=== PATIENT | male | born 1945 | race Caucasian/White ===

== ENCOUNTER 2022-05-02 21:43 | Emergency (ER) | payer MEDICARE, BC, SELFPAY ==
[2022-05-02 22:00] VITALS: BP 150/74; PULSE 105; RESP 18; TEMP 36.6; O2SAT 98; BMI 26.6
--- NOTE | 2022-05-02 22:37 | ED.GENADULT ---
HPI - General Adult General Chief complaint: Dizziness/Vertigo Stated complaint: TROUBLE STANDING UP Time Seen by Provider: 05/02/22 22:02 History of Present Illness HPI narrative: 76-year-old man presenting to the emergency department accompanied by spouse with concern of lightheadedness. Not actually dizziness. History of vertigo. History of TBI. He is not complaining of any headache. Has not had a fever. Two days ago had a prostate biopsy. Apparently has struggled with urinary frequency and elevating PSA. He is also today noticed some hematuria. [place] the [place] [employer]. Has felt lightheaded really upon waking today. Does have a history of lightheadedness like this related to doubling up on his medication I believe this was Tegretol. This was due to a mistake in medication dosing as prescribed versus apparently what clinic understood he needed to be taking. He is not having any chest pain or shortness of breath. No abdominal pain. Not describing dysuria either. Spouse noted him this evening just to be weaving about; very unsteady. Related Data Home Medications Medication Instructions Recorded Confirmed amlodipine 5 mg tablet 7.5 mg PO DAILY 05/03/22 05/03/22 atorvastatin 20 mg tablet 20 mg PO HS 05/03/22 05/03/22 carbamazepine 100 mg 100 mg PO BID 05/03/22 05/03/22 tablet,extended release,12 hr lamotrigine 100 mg tablet 100 mg PO BID 05/03/22 05/03/22 lisinopril 5 mg tablet 5 mg PO DAILY 05/03/22 05/03/22 mesalamine 800 mg tablet,delayed 800 mg PO BID 05/03/22 05/03/22 release tamsulosin 0.4 mg capsule 0.4 mg PO DAILY 05/03/22 05/03/22 Allergies Allergy/AdvReac Type Severity Reaction Status Date / Time No Known Drug Allergies Allergy Verified 05/02/22 22:10 Review of Systems Status of ROS: Reports: 10 or more systems reviewed and unremarkable except as noted in History and below [facility] Medical History (Updated 05/03/22 @ 00:38 by Brayan Burleson MD) Cognitive disorder Dementia Depression Hypertension Unsteadiness on feet Urinary frequency Surgical History History of appendectomy S/P subdural hematoma evacuation Social History Smoking Status: Never smoker Do you use any of these nicotine containing products: None How often do you have a drink containing alcohol: never AUDIT-C Alcohol total score: 0 Non-prescribed substance use: denies use Exam Narrative: Exam Narrative: A little hard of hearing, distracted in this regard. defers sometimes to spouse. Cranial nerves 2-12 are intact. [id number] is intact. There is no nystagmus appreciated. Oropharynx is moist. Shaheen complected. Not inconsistent with being outside. Cardiovascular is tachycardic. Regular rhythm. No murmurs appreciated. Lungs are clear. Initial inspiratory effort inspire his cough. Abdomen is soft nontender. Overweight. Shirt is temp by what I believe from urine in the front. Smells a little urine. Moving all extremities difficulty. Well perfused peripherally. No extremity edema. Const: Vital Signs, click to edit/add: Vital Signs - 24 hr 05/02/22 22:00 05/02/22 23:00 05/03/22 01:00 Temperature 97.9 F 97.9 F Pulse Rate [Right Pulse Oximeter] 105 H 105 H 91 Pulse Rate [orthos tatic sitting Righ t Pulse Oximeter] 107 H Pulse Rate [orthos tatic standing Rig ht Pulse Oximeter] 110 H Respiratory Rate 18 18 Blood Pressure [Ri ght Upper Arm] 150/74 H 132/74 Blood Pressure [or thostatic lying Le ft Arm] 111/69 Blood Pressure [or thostatic sitting Left Arm] 120/72 Blood Pressure [or thostatic standing Left Arm] 127/79 Pulse Oximetry 98 98 Oxygen Delivery Me thod Room Air Room Air 05/03/22 01:23 Temperature 97.9 F Pulse Rate [Right Pulse Oximeter] 91 Pulse Rate [orthos tatic sitting Righ t Pulse Oximeter] Pulse Rate [orthos tatic standing Rig ht Pulse Oximeter] Respiratory Rate 18 Blood Pressure [Ri ght Upper Arm] 132/74 Blood Pressure [or thostatic lying Le ft Arm] Blood Pressure [or thostatic sitting Left Arm] Blood Pressure [or thostatic standing Left Arm] Pulse Oximetry Oxygen Delivery Me thod Documenting provider has reviewed patient's vital signs: yes Course Course Hospital Course: Throughout time in the emergency department continue to make frequent trips to the bathroom. Bladder scanned at 1 point postvoid at 47 mL. Reevaluation(s) Reevaluation #1: Cognition has cleared somewhat. Still tends to be impulsive and wanting to act on his own accord without asking for help. Spouse acknowledges that he seems to be demonstrating more strength and mental clarity throughout time here in the ER after hydration. I do perceive him to be more steady on his feet as well. Vital Signs Vital signs: Initial Vital Signs Temperature 97.9 F 05/02/22 22:00 Temperature Source Temporal Artery Scan 05/02/22 22:00 Pulse Rate 105 H 05/02/22 22:00 Respiratory Rate 18 05/02/22 22:00 Blood Pressure 150/74 H 05/02/22 22:00 Blood Pressure Mean 99 05/02/22 22:00 Blood Pressure Position Supine 05/02/22 22:00 Pulse Oximetry 98 05/02/22 22:00 Oxygen Delivery Method 05/02/22 22:00 Vital Signs Temperature 97.9 F 05/02/22 22:00 Pulse Rate 105 H 05/02/22 22:00 Respiratory Rate 18 05/02/22 22:00 Blood Pressure 150/74 H 05/02/22 22:00 Pulse Oximetry 98 05/02/22 22:00 Oxygen Delivery Method 05/02/22 22:00 Temperature 97.9 F 05/03/22 01:23 Pulse Rate 91 05/03/22 01:23 Respiratory Rate 18 05/03/22 01:23 Blood Pressure 132/74 05/03/22 01:23 Pulse Oximetry 98 05/03/22 01:00 Oxygen Delivery Method 05/03/22 01:00 Medical Decision Making [facility] Narrative Medical decision making narrative: Combinatino of factors perhaps contributing to presentation here today -- h/o tbi and propensity to vertigo-like symptoms, antiepileptic medication, dehydration having been out in the sun at baseball all day, possible brewing infectious etiology. Medical Records Medical records reviewed: Yes I reviewed the patient's medical records Lab Data Lab results reviewed: Yes I reviewed the patient's lab results Labs: Lab Results 05/02/22 05/02/22 05/02/22 Range/Units 22:35 23:00 23:00 WBC 10.07 (4.50-11.00) K/uL RBC 4.87 (4.30-5.90) m/uL Hgb 15.6 (13.5-17.5) gm/dL Hct 46.1 (37.0-53.0) % MCV 95 (80-100) fL MCH 32 (26-34) pg MCHC 34 (32-36) gm/dL RDW Coeff of Luis 13.7 (11.5-15.5) % Plt Count 259 (140-440) K/uL Neut % (Auto) 79.6 H (42.0-72.0) % Lymph % (Auto) 7.5 L (20-44) % [place] % (Auto) 11.8 H (0.0-11.0) % Eos % (Auto) 0.2 (0.0-7.0) % Baso % (Auto) 0.2 (0.0-3.0) % Neut # (Auto) 8.00 H (1.7-7.0) K/uL Lymph # (Auto) 0.80 L (0.90-2.90) K/uL [place] # (Auto) 1.20 H (0.00-0.90) K/UL Eos # (Auto) 0.02 (0.00-0.50) K/uL Baso # (Auto) 0.02 (0.00-0.30) K/uL Abs Immat Gran (auto) 0.07 (0.00-0.30) K/uL Sodium 137 (135-149) mmol/L Potassium 3.9 (3.6-5.1) mmol/L Chloride 102 (96-114) mmol/L Carbon Dioxide 26 (20-32) mmol/L BUN 13 (7-30) mg/dL Creatinine 1.0 (0.5-1.5) mg/dL Estimated Creat Clear 61.75 Estimated GFR 78 ml/min Glucose 118 H (60-115) mg/dL Calcium 9.1 (8.4-10.6) mg/dL Magnesium 1.9 (1.5-2.6) mg/dL Total Bilirubin 0.5 (0.1-1.5) mg/dL AST 39 H (12-35) U/L ALT 21 (4-50) U/L Alkaline Phosphatase 106 (40-150) U/L Troponin I < 0.01 L (0.01-0.04) ng/mL C-Reactive Protein 4.3 H (0.5-1.0) mg/dL NT-Pro-B Natriuret Pep 51 (0-450) PG/mL Total Protein 7.6 (6.0-8.3) g/dL Albumin 4.6 (3.3-5.0) g/dL Urine Color Yellow (Yellow) Urine Appearance Clear (Clear) Urine pH 7.5 (5.0-8.5) Ur Specific [place] 1.020 (1.000-1.030) Urine Protein Negative (Negative) Urine Glucose (UA) Negative (Negative) Urine Ketones Negative (Negative) Urine Blood 3+ A (Negative) Urine Nitrite Negative (Negative) Urine Bilirubin Negative (Negative) Urine Urobilinogen 0.2 (0.2-1.0) Ur Leukocyte Esterase Trace A (Negative) Urine RBC 5-10 A (0-2) Urine WBC 2-5 (0-5) Ur Squamous Epith Cells Few (None-Few) Urine Bacteria None (None) Carbamazepine (4.0-12.0) ug/mL Ethyl Alcohol < 0.01 L (0.01-0.03) % SARS-CoV-2 (PCR) (Negative) POC Troponin I (0.01-0.04) ng/ml 05/02/22 05/02/22 05/02/22 Range/Units 23:00 23:00 23:00 WBC (4.50-11.00) K/uL RBC (4.30-5.90) m/uL Hgb (13.5-17.5) gm/dL Hct (37.0-53.0) % MCV (80-100) fL MCH (26-34) pg MCHC (32-36) gm/dL RDW Coeff of Luis (11.5-15.5) % Plt Count (140-440) K/uL Neut % (Auto) (42.0-72.0) % Lymph % (Auto) (20-44) % [place] % (Auto) (0.0-11.0) % Eos % (Auto) (0.0-7.0) % Baso % (Auto) (0.0-3.0) % Neut # (Auto) (1.7-7.0) K/uL Lymph # (Auto) (0.90-2.90) K/uL [place] # (Auto) (0.00-0.90) K/UL Eos # (Auto) (0.00-0.50) K/uL Baso # (Auto) (0.00-0.30) K/uL Abs Immat Gran (auto) (0.00-0.30) K/uL Sodium (135-149) mmol/L Potassium (3.6-5.1) mmol/L Chloride (96-114) mmol/L Carbon Dioxide (20-32) mmol/L BUN (7-30) mg/dL Creatinine (0.5-1.5) mg/dL Estimated Creat Clear Estimated GFR ml/min Glucose (60-115) mg/dL Calcium (8.4-10.6) mg/dL Magnesium (1.5-2.6) mg/dL Total Bilirubin (0.1-1.5) mg/dL AST (12-35) U/L ALT (4-50) U/L Alkaline Phosphatase (40-150) U/L Troponin I (0.01-0.04) ng/mL C-Reactive Protein (0.5-1.0) mg/dL NT-Pro-B Natriuret Pep (0-450) PG/mL Total Protein (6.0-8.3) g/dL Albumin (3.3-5.0) g/dL Urine Color (Yellow) Urine Appearance (Clear) Urine pH (5.0-8.5) Ur Specific [place] (1.000-1.030) Urine Protein (Negative) Urine Glucose (UA) (Negative) Urine Ketones (Negative) Urine Blood (Negative) Urine Nitrite (Negative) Urine Bilirubin (Negative) Urine Urobilinogen (0.2-1.0) Ur Leukocyte Esterase (Negative) Urine RBC (0-2) Urine WBC (0-5) Ur Squamous Epith Cells (None-Few) Urine Bacteria (None) Carbamazepine 10.1 (4.0-12.0) ug/mL Ethyl Alcohol (0.01-0.03) % SARS-CoV-2 (PCR) Negative SARS-CoV-2 (Negative) POC Troponin I 0.02 (0.01-0.04) ng/ml ECG Data Attestation: I personally reviewed and interpreted this ECG as follows: (On presentation EKG showed sinus tachycardia rate of 101) Discharge Plan Discharge Clinical Impression: General unsteadiness, Urinary frequency, Dehydration Patient Disposition: Home w/ Parent or Adult Condition: Improved Additional Instructions: Do focus on hydration, carbonated or not. Be sure to in the short term, get around with a walker. Levels of carbemazepine and lamotrigine are pending here. Return for increasing weakness, discoordination, fever. Prescriptions: No Action amlodipine 5 mg tablet 7.5 mg PO DAILY Label Comments: TAKE 1 AND 1/2 TABLETS (7.5MG) BY MOUTH EVERY DAY atorvastatin 20 mg tablet 20 mg PO HS Label Comments: TAKE ONE TABLET(20MG) BY MOUTH AT BEDTIME carbamazepine 100 mg tablet extended release 12 hr 100 mg PO BID Label Comments: TAKE TWO TABLETS BY MOUTH EVERY MORNING AND TAKE 3 TABLETS BY MOUTH EVERY EVENING lamotrigine 100 mg tablet 100 mg PO BID Label Comments: TAKE ONE TABLET BY MOUTH EVERY MORNING AND 2 TABLETS EVERY EVENING DIRECTED lisinopril 5 mg tablet 5 mg PO DAILY Label Comments: TAKE 1 TABLET BY MOUTH ONCE DAILY. mesalamine 800 mg tablet,delayed release (DR/EC) 800 mg PO BID Label Comments: TAKE 3 TABLETS BY MOUTH IN THE MORNING AND TAKE 3 TABLETS IN THE AFTERNOON tamsulosin 0.4 mg capsule 0.4 mg PO DAILY Label Comments: TAKE ONE CAPSULE(0.4MG) BY MOUTH ONCE DAILY AFTER A MEAL Follow Up/Referrals: Andrea Zelaya MD [Primary Care Provider] - Stand Alone Forms: [employer] Info Instructions
[2022-05-02 22:44] LABS: Appearance Urine Clear (Clear); Bilirubin Urine Negative (Negative); Blood Urine 3+ (Negative); Color Urine Yellow (Yellow); Glucose Urine Negative (Negative); Ketones Urine Negative (Negative); Leukocyte Esterase Urine Trace (Negative); Nitrite Urine Negative (Negative); Protein Urine Negative (Negative); Urobilinogen Urine 0.2 (0.2-1.0); pH Urine 7.5 (5.0-8.5)
[2022-05-02 23:00] VITALS: BP 111/69; BP 120/72; BP 127/79; PULSE 105; PULSE 107; PULSE 110
[2022-05-02] MEDS: 0.9 % SODIUM CHLORIDE 1000 ml 1,000 ML IV (23:00)
[2022-05-02 23:20] LABS: Basophils Absolute Auto 0.02 K/uL (0.00-0.30); Basophils Percent Auto 0.2 % (0.0-3.0); Eosinophils Absolute Auto 0.02 K/uL (0.00-0.50); Eosinophils Percent Auto 0.2 % (0.0-7.0); Hematocrit 46.1 % (37.0-53.0); Hemoglobin* 15.6 gm/dL (13.5-17.5); Immature Granulocytes Abs Auto 0.07 K/uL (0.00-0.30); Lymphocytes Percent Auto 7.5 % (20-44); Mean Corpuscular HGB Conc 34 gm/dL (32-36); Mean Corpuscular Hemoglobin 32 pg (26-34); Mean Corpuscular Volume 95 fL (80-100); Monocytes Percent Auto 11.8 % (0.0-11.0); Neutrophils Percent Auto 79.6 % (42.0-72.0); Platelet Count* 259 K/uL (140-440); RDW Coefficient of Variation % 13.7 % (11.5-15.5); Red Blood Count 4.87 m/uL (4.30-5.90); White Blood Count* 10.07 K/uL (4.50-11.00)
[2022-05-02 23:30] LABS: Slide Review Reflex No
[2022-05-02 23:35] LABS: Albumin* 4.6 g/dL (3.3-5.0); Chloride* 102 mmol/L (96-114)
[2022-05-02 23:36] LABS: Potassium* 3.9 mmol/L (3.6-5.1); Sodium* 137 mmol/L (135-149)
[2022-05-02 23:37] LABS: Est. Creatinine Clearance* 61.75; Estimated Glomerular Filt Rate 78 ml/min
[2022-05-02 23:38] LABS: Alanine Aminotransferase* 21 U/L (4-50); Alkaline Phosphatase* 106 U/L (40-150); Aspartate Amino Transferase* 39 U/L (12-35); Bilirubin Total* 0.5 mg/dL (0.1-1.5); Blood Urea Nitrogen* 13 mg/dL (7-30); Carbon Dioxide* 26 mmol/L (20-32); Total Protein* 7.6 g/dL (6.0-8.3)
[2022-05-02 23:39] LABS: Squamous Epithelial Cell Urine Few (None-Few)
[2022-05-02 23:39] LABS: Calcium* 9.1 mg/dL (8.4-10.6); Glucose* 118 mg/dL (60-115); Magnesium* 1.9 mg/dL (1.5-2.6)
[2022-05-02 23:41] LABS: C Reactive Protein* 4.3 mg/dL (0.5-1.0)
[2022-05-02 23:42] LABS: Ethanol* < 0.01 % (0.01-0.03)
[2022-05-02 23:47] LABS: NT Pro B Type NatriureticPept* 51 PG/mL (0-450)
--- NOTE | 2022-05-02 23:48 | ED.NURSE ---
bladder scanned for 47cc. md notified.
[2022-05-02 23:50] LABS: Troponin, Point-of-Care* 0.02 ng/ml (0.01-0.04)
[2022-05-02 23:56] LABS: Troponin I* < 0.01 ng/mL (0.01-0.04)
[2022-05-03 00:16] LABS: SARS PCR* Negative SARS-CoV-2 (Negative)
[2022-05-03 01:00] VITALS: BP 132/74; PULSE 91; RESP 18; TEMP 36.6; O2SAT 98
[2022-05-03 01:23] VITALS: BP 132/74; PULSE 91; RESP 18; TEMP 36.6
[2022-05-03 02:56] LABS: Carbamazepine Tegretol* 10.1 ug/mL (4.0-12.0)
== END 2022-05-03 01:24 | disposition home or self-care (01) ==
PROVIDERS: Emergency Provider Family Medicine; PCP Family Medicine
DX: E86.0 Dehydration (principal); R26.81 Unsteadiness on feet; R35.0 Frequency of micturition
CPT/HCPCS: 36415; 80053; 80156; 80175; 81003; 81015; 82077; 83735; 83880; 84484; 85025; 86140; 87040; 87635; 93005; 96360; 99283; 99284; J7030

== ENCOUNTER 2024-09-25 18:37 | Outpatient (CLI) | payer MEDICARE, BC, SELFPAY | END 2024-09-25 18:38 | disposition home or self-care (01) | LOC: AMB 10-06 03:17 | PROVIDERS: PCP Family Medicine; Visit Provider Emergency Medicine Emergency Medical Services | DX: T14.90XA Injury, unspecified, initial encounter (principal); W10.9XXA Fall (on) (from) unspecified stairs and steps, initial encounter; Y92.9 Unspecified place or not applicable | CPT/HCPCS: A0425; A0427 ==

== ENCOUNTER 2024-09-25 19:06 | Inpatient (IN) | payer MEDICARE, BC, SELFPAY ==
[2024-09-25 19:10] VITALS: BP 185/99; PULSE 108; RESP 18; TEMP 37.5; O2SAT 99; BMI 25.8
--- NOTE | 2024-09-25 19:51 | CRLHL7_ITS ---
For Patients: As a result of the Century Cures Act, medical imaging exams and procedure reports are released immediately into your electronic medical record. You may view this report before your referring provider. If you have questions, please contact your health care provider. INDICATION: Fall. Recent diagnosis of bladder cancer. COMPARISON: 01/30/2020 MRI brain TECHNIQUE: CT of the head without contrast. FINDINGS: Motion degraded exam particularly at the skull vertex. Old findings of a right frontal craniotomy with a large region of encephalomalacia the left frontal lobe are again noted. There is a elongated 11 millimeter hyperattenuating focus within the left postcentral gyrus (). Small old infarct in the left frontal lobe again noted. Chronic bilateral basal ganglia old lacunar infarcts and/or dilated perivascular spaces. There is moderate hypoattenuating changes in the white matter which is nonspecific, but commonly attributable to chronic microvascular ischemic change. There is mild parenchymal volume loss with commensurate size of the ventricles and sulci. There are intracranial vascular calcifications. There is mild to moderate scattered paranasal sinus mucosal thickening. IMPRESSION: Motion degraded exam particularly at the skull vertex. Within this limitation: 1. 11 millimeter hyperattenuating focus in the left postcentral gyrus possibly representing a small focus of acute intracranial hemorrhage and/or a mass lesion. Recommend further evaluation with MRI. 2. Old findings of right frontal craniotomy with large region of right frontal encephalomalacia. 3. Additional chronic and incidental findings as detailed above. Please note that all CT scans at this facility use dose modulation, iterative reconstruction, and/or weight-based dosing when appropriate to reduce radiation dose to as low as reasonably achievable. Dictated by Arron Polanco MD @ 09/25/2024 8:59:48 PM (Electronically Signed)
--- NOTE | 2024-09-25 19:51 | CRLHL7_ITS ---
For Patients: As a result of the Century Cures Act, medical imaging exams and procedure reports are released immediately into your electronic medical record. You may view this report before your referring provider. If you have questions, please contact your health care provider. INDICATION: Fall. Recent diagnosis of bladder cancer. COMPARISON: 01/30/2020 TECHNIQUE: CT of the cervical spine without contrast. FINDINGS: Diffuse osseous demineralization. Alignment: Mild multilevel cervical listhesis. Straightening the cervical lordosis. Vertebra: No evident acute displaced fracture or traumatic malalignment. Cervical vertebral body height is grossly preserved. There are multilevel degenerative changes characterized by disc height loss, osteophytosis, facet hypertrophy, and end plate degenerative irregularity. Small pannus at the craniocervical junction. No high-grade osseous spinal canal stenosis. There is multilevel osseous neural foraminal stenosis most pronounced at the bilateral C3-4 where it is severe. Paraspinal muscles: Unremarkable noncontrast CT appearance. Additional findings: There are atherosclerotic vascular calcifications. IMPRESSION: 1. No evident acute displaced fracture. 2. Severe degenerative change of the cervical spine. Please note that all CT scans at this facility use dose modulation, iterative reconstruction, and/or weight-based dosing when appropriate to reduce radiation dose to as low as reasonably achievable. Dictated by Arron Polanco MD @ 09/25/2024 9:06:00 PM (Electronically Signed)
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
[2024-09-25 20:56] LABS: Basophils Absolute Auto 0.02 K/uL (0.00-0.30); Basophils Percent Auto 0.2 % (0.0-3.0); Eosinophils Absolute Auto 0.09 K/uL (0.00-0.50); Immature Granulocytes Abs Auto 0.09 K/uL (0.00-0.30); Lymphocytes Percent Auto 4.7 % (20-44); Mean Corpuscular HGB Conc 33 gm/dL (32-36); Mean Corpuscular Hemoglobin 32 pg (26-34); Mean Corpuscular Volume 95 fL (80-100); Monocytes Percent Auto 10.3 % (0.0-11.0); Neutrophils Percent Auto 82.8 % (42.0-72.0); Platelet Count* 300 K/uL (140-440); RDW Coefficient of Variation % 13.1 % (11.5-15.5); Red Blood Count 4.74 m/uL (4.30-5.90); White Blood Count* 9.11 K/uL (4.50-11.00)
[2024-09-25 21:03] LABS: Slide Review Reflex No
[2024-09-25 21:10] VITALS: BP 180/102; PULSE 108; RESP 20; O2SAT 94
[2024-09-25 21:10] LABS: Chloride* 100 mmol/L (96-114); Potassium* 4.2 mmol/L (3.6-5.1); Sodium* 138 mmol/L (135-149)
[2024-09-25 21:12] LABS: Creatinine* 0.9 mg/dL (0.5-1.5); Est. Creatinine Clearance* 59.85; Estimated Glomerular Filt Rate 88 ml/min
[2024-09-25 21:13] LABS: Anion Gap 9 mEq/L (7-15); Blood Urea Nitrogen* 11 mg/dL (7-30); Carbon Dioxide* 29 mmol/L (20-32); Glucose* 104 mg/dL (60-115)
[2024-09-25 21:14] LABS: Calcium* 9.7 mg/dL (8.4-10.6)
[2024-09-25 21:15] LABS: INR 0.91 (0.91-1.10); Prothrombin Time 12.8 Seconds
[2024-09-25 21:28] LABS: Troponin I* < 0.01 ng/mL (0.01-0.04)
--- NOTE | 2024-09-25 21:59 | CRLHL7_ITS ---
For Patients: As a result of the Century Cures Act, medical imaging exams and procedure reports are released immediately into your electronic medical record. You may view this report before your referring provider. If you have questions, please contact your health care provider. INDICATION: Persistent tachycardia after chest abdominal pelvic injury from fall. Recent bladder cancer diagnosis TECHNIQUE: CT chest was performed with pulmonary angiographic technique. Subsequently, CT abdomen and pelvis with i.v. contrast, scanned during the venous phase. MIPS, coronal and sagittal reformats were obtained. CONTRAST: 83 mL Isovue 370 COMPARISON: None FINDINGS: The sensitivity and specificity of the exam are moderately limited by beam hardening artifacts from scanning with the arms by the patient`s side. CHEST: Cardiovascular: The pulmonary arteries are unremarkable in enhancement with no evidence of acute pulmonary embolism. The heart has an unremarkable appearance and size. No sign of aneurysm or dissection in the thoracic aorta. Moderate atherosclerotic calcifications are noted in the coronary arteries. Mediastinum: No mass or adenopathy seen. Lung: No pulmonary contusion, laceration or pneumothorax is seen. Pleura and pericardium: No sign of pleural effusion seen. No significant pericardial effusion is present. Chest wall and axilla: No mass or adenopathy seen. ABDOMEN/PELVIS: Liver: There is a cyst in the left dome of the liver measuring 2 cm. Spleen: Unremarkable. Pancreas: Unremarkable. Gallbladder: Unremarkable. Kidney: Excretion of contrast into the renal collecting systems and ureters arenoted, which limits evaluation for the presence of stones. Adrenal: Unremarkable. Bowel: A duodenal diverticulum measuring 3.5 cm in diameter is noted. Previous appendectomy noted with no significant appendiceal stump identified. Vascular: Unremarkable. Lymph: Unremarkable. Peritoneum: Unremarkable. No pneumoperitoneum is seen. No significant ascites is noted. Pelvis: There is a cyst present within the right seminal vesicle measuring 1.8 cm. Soft tissue: Unremarkable. Bone: Remote healed fractures of the right posterior 4th-6th ribs are noted. There are nondisplaced acute appearing fractures in the posterior left 8th-10th ribs. A healed remote fracture of the left posterior lateral 9th rib fractures noted. 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 A chronic appearing mild compression deformity is present along the superior endplate of L2 and L3. IMPRESSIONS: 1. There are nondisplaced acute appearing fractures in the posterior left 8th-10th ribs. 2. 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 Dictated by Khris Ross MD @ 09/25/2024 10:59:03 PM Please note that all CT scans at this facility use dose modulation, iterative reconstruction, and/or weight-based dosing when appropriate to reduce radiation dose to as low as reasonably achievable. Dictated by: Khris Ross MD @ 09/25/2024 22:59:09 (Electronically Signed)
[2024-09-25 22:05] VITALS: O2SAT 96
[2024-09-25 22:12] VITALS: BP 137/80; PULSE 99; RESP 20; O2SAT 92
[2024-09-25 22:44] LABS: PCR FLU A POSITIVE PCR FLU A (Negative); PCR FLU B Negative PCR FLU B (Negative); PCR RSV Negative PCR RSV (Negative); SARS PCR* Negative SARS-CoV-2 (Negative)
[2024-09-25 22:47] LABS: TSH With Reflex to FT4* 0.592 uIU/mL (0.270-4.200)
[2024-09-25] MEDS: OSELTAMIVIR PHOSPHATE 75 MG CAPSULE PO (22:54)
[2024-09-25 23:02] VITALS: BP 170/89; PULSE 100; RESP 20; O2SAT 96
[2024-09-26] VITALS (28 sets, daily range): BP systolic 93–138; BP diastolic 59–78; PULSE 67–99; RESP 18–20; TEMP 36.9–38.4; O2SAT 90–96; BMI 27.0
--- OUTSIDE RECORDS SUMMARY | 2024-09-26 00:14 | XMS_ITS | Data Portability ---
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 ALSO FOUND TO HAVE A URETHRAL STRICTURE. PRESENTLY VOIDING OK. PSA 0.70. WAS USING TRIPLE AGENT BEFORE HIS PROCEDURE. REVIEWED PSA REVIEWED RECORDS PLAN RTC 3 MO U/A, PVR. IF HAVING ANY VOIDING SX.S DO CYSTO Not available 01/05/2023 12:40:20 04/07/2023 04/07/2023 77 Y/O MALE, HX CAP, G6, S/P CRYO 08/27 PSA 0.9. HX URETHRAL STRICTURE DISEASE. HE HAS NOTED REDUCED FLOW, CYSTO U-DIL. ORDERED REVIEWED U/A, PSA CYSTO U-DIL OVER A WIRE PLAN RTC 6 MO PSA. U/A,PVRANTIBIO TICS GIVEN. Not available 04/09/2023 09:42:06 10/13/2023 10/13/2023 77 Y/O MALE, HX CAP, S/P CRYO 08/27/22. PSA STABLE 1.4. ALSO REDUCED SEX DRIVE. HAS TRIED MEDICAL THERAPY WITH MARGINAL IMPROVEMENT. DISCUSSED OTHER OPTIONS. ORDERED,REVIEW ED U/A, PVR, PSA PLAN SILDENAFIL NEEDED, HAS A BULKBOUS STRICTURE WILL SCHEDULE CYSTO UDIL IN NEAR FUTURE Not available 10/13/2023 15:32:10 12/01/2023 12/01/2023 77 Y/O MALE, HX CAP, S/P CRYO 08/27/22. PSA STABLE 1.4, ED, bulbar urethral stricture [email or web address] Not available 12/01/2023 09:28:41 Plan of Treatment Reminders Order Date Submit Date Provider Last Modified By Organization Details Last Modified Time Details Appointments None recorded . Lab PSA, serum or plasma 2023 [facility], [address], [place], [address], 14:41:07 Referral None recorded . Procedures None recorded . Surgeries None recorded . Imaging None recorded . Medication Orders sildenaf il 100 mg tablet [address], [address], 15:20:04 clomiphe ne citrate 50 mg tablet [address], [address], 12:50:07 oxybutyn in chloride ER 15 mg tablet,e xtended release 24 hr [address], [address], 16:58:58 Patient TargetsNo targets recorded. Patient InstructionsNo instructions recorded. Reason for Referral None Reported. Results Created Date Observation Date Name Description Value Unit Range Abnormal Flag Note LastModifiedBy Organization Detail LastModifiedTime 10/13/19 24 10/13/2023 TESTO STERO NE testosterone 384.53 NG/dL 175.00 -781.0 0 This lab resul t is being provi ded to you and your provi nadia at the same time in compl iance with the Centu ry Cures Act. Your provi nadia may not have had time to revie w and make recom menda tions based on the resul t. Christian agarwal allow up to one week for provi nadia revcarmen w. Not Available [facility] [address], [place], [address], 10/13/2023 18:04:39 10/13/19 24 10/13/2023 PSA, serum or plasm a PSA 1.4 0-4.0 Not Available [facility] [address], [place], [address], 10/13/2023 14:40:48 Result Notes None recorded. Problems Name Problem SNOMED Code Status Onset Date Resolution Date Notes Provider Name and Address Organization Details Recorded Time Malignant tumor of prostate 225505337 Active 2023 Bladimir Claire MD [address], [place], [address], [facility] 4 14:40:46 Erectile dysfunction 999716455 Active 2023 Bladimir Claire MD [address] [facility], [place], [address], [facility] 4 15:32:32 Increased frequency of urination 797766331 Active 2023 Bladimir Claire MD [address] [facility],[address], [place], [address], [facility] 4 14:12:49 Urethral stricture 44424663 Active 2023 Bladimir Claire MD [address] [place] [address],[address], [place], [address], [facility] 4 13:54:29 Problem Notes None recorded. Procedures Surgical History Date Name Laterality Status Provider Name and Address Organization Details Recorded Time 12/01/19 24 Bladder Scan completed Kirsten Diaz [facility] 12/01/2023 15:24:26 11/02/19 24 CystoscopyMale completed Bladimir Claire MD [address] [facility],[address], [place], [address], [facility] 2023 13:58:00 10/13/19 24 SOFTWARE COMPUTER SPECIALIST/blood draw completed Bladimir Claire MD [address] [facility] [facility],[address], [place], [address], [facility] 10/13/2023 14:40:41 04/07/20 23 Cystoscopy with urethral dilation completed Bladimir Claire MD [address] [place] [address],[address], [place], [address], [facility] 04/09/2023 09:40:32 09/23/19 23 Bladder Scan completed Bladimir Claire MD [address] [place] [address],[address], [place], [address], [facility] 09/23/2022 12:18:03 08/25/20 22 Fill and Pull/Voiding Trial/TOV completed Love Steven [facility] 08/25/2022 11:39:37 04/30/20 22 Prostate Biopsy Procedure completed Vazquez Mcarthur MD [address] [place] [address],[address], [place], [address], [facility] 04/30/2022 11:42:46 03/27/20 22 SOFTWARE COMPUTER SPECIALIST/blood draw completed Wandastephani Lopez [facility] 03/27/2022 11:58:07 operation on brain completed Wandastephani Lopez [facility] 03/27/2022 11:57:11 Appendectomy completed Wandastephani Lopez [facility] 03/27/2022 11:57:19 tonsillectomy completed [facility] 03/27/2022 11:57:24 Imaging Results None recorded. Procedure Notes None recorded. Medical Equipment None Reported. Allergies Allergen ID Allergen Name Allergen Category Reaction Reaction Severity Criticality Documentation Date Start Date Code Code System Note Provider Name and Address Organization Details Recorded Time [id number] 2824e Ceftin medicatio n Not available Not available Not available 03/27/2022 74985 6 RxNorm Not Available Not Available Not Available [id number] 2824e Keppra medicatio n Not available Not available Not available 03/27/2022 56490 7 RxNorm Not Available Not Available Not Available Medications Name Sig Start Date Stop Date Status Note LastModified by Organization Details LastModified Time Trimix 30 papaverine/ 1 phentolamin e/10 PGE-1 called in to pharmacy below 2021 active Not Available Not Available Not Avai lable tolterodine ER 2 mg capsule,ext ended release 24 hr TAKE 1 CAPSULE BY MOUTH EVERY DAY DIRECTED FOR 30 DAYS. 11/30 completed Not Available Not Available Not Available prednisone 10 mg tablet TAKE 6 TABLETS BY MOUTH ONCE DAILY FOR 7 DAYS THEN 4 TABS DAILY FOR 3 DAYS THEN 2 TABS DAILY X3 DAYS THEN 1 TAB DAILY X3 DAYS.DO NOT STOP SUDDENLY 03/27 completed Not Available Not Available Not Available oxybutynin chloride ER 15 mg tablet,exte nded release 24 hr TAKE ONE TABLET BY MOUTH EVERY DAY active Not Available Not Available No t Available atorvastati n 20 mg tablet TAKE 1 TABLET (20 MG) BY MOUTH AT BEDTIME. active Not Available Not Available No t Available azithromyci n 250 mg tablet TAKE 2 TABLETS BY MOUTH TODAY THEN 1 TABLET DAILY FOR 4 DAYS 11/30 completed Not Available Not Available Not Available carbamazepi ne ER 100 mg tablet,exte nded release,12 hr TAKE TWO TABLETS BY MOUTH EVERY MORNING AND TAKE 3 TABLETS BY MOUTH EVERY EVENING active Not Available Not Available No t Available amlodipine 5 mg tablet TAKE 1.5 TABLETS (7.5 MG) BY MOUTH ONCE DAILY. active Not Available Not Available No t Available ciprofloxac in 500 mg tablet TAKE 1 TABLET BY MOUTH EVERY 12 HOURS FOR 7 DAYS. 11/30 completed Not Available Not Available Not Available sulfamethox azole 800 mg-trimetho prim 160 mg tablet TAKE ONE TABLET BY MOUTH EVERY 12 HOURS FOR 7 DAYS 09/23 completed Not Available Not Available Not Available tramadol 50 mg tablet 11/30 completed Not Available Not Available Not Available sildenafil 100 mg tablet TAKE 1 TABLET NEEDED 30 MINUTES PRIOR TO SEXUAL ACTIVITY 11/30 completed Not Available Not Available Not Available terbinafine HCl 250 mg tablet TAKE 1 TABLET (250 MG) BY MOUTH ONCE DAILY. active Not Available Not Available No t Available tamsulosin 0.4 mg capsule TAKE ONE CAPSULE(0 .4MG) BY MOUTH ONCE DAILY AFTER A MEAL 11/30 completed Not Available Not Available Not Available benzonatate 100 mg capsule TAKE ONE CAPSULE BY MOUTH 2-3 TIMES DAILY DAILY NEEDED FOR COUGH 11/30 completed Not Available Not Available Not Available oxybutynin chloride ER 5 mg tablet,exte nded release 24 hr 11/30 completed Not Available Not Available Not Available lisinopril 5 mg tablet TAKE 1 TABLET (5 MG) BY MOUTH ONCE DAILY. active Not Available Not Available No t Available gentamicin 40 mg/mL injection solution Take 2 mL by injection route. 05/20 completed Not Available Not Available Not Available lamotrigine 100 mg tablet TAKE ONE TABLET BY MOUTH EVERY MORNING AND 2 TABLETS EVERY EVENING DIRECTED active Not Available Not Available No t Available Clomid 50 mg tablet active Not Available Not Available No t Available peg 3350-electr olytes 236 gram-22.74 gram-6.74 gram-5.86 gram solution DRINK 1ST PORTION OF PREP AT 6 PM THE EVENING BEFORE. 2ND PORTION MUST BE STARTED 3 HOURS BEFORE AND FINISHED 2 HOURS PRIOR TO REPORT TIME 11/30 completed Not Available Not Available Not Available mesalamine 800 mg tablet,blake yed release TAKE 3 TABLETS BY MOUTH IN THE MORNING AND TAKE 3 TABLETS IN THE AFTERNOON active Not Available Not Available No t Available Vitals Date Recorded Body height Provider Name an d Address Organization Details Last Updated DateTime 01/05/2023 172.72 cm Pauline Sosa [address] [place] [address], [address] [place] [address] 01/05/2023 12:27:01 Date Recorded Body mass index (BMI) Body weight Provider Name and Address Organization Details Last Updated DateTime 01/05/2023 26.6 kg/m2 65412.66 g Bladimir Claire MD [address] [place] [address], [address], [facility] 01/05/2023 12:27:06 Date Recorded Body height Provider Name an d Address Organization Details Last Updated DateTime 04/07/2023 172.72 cm Pauline Sosa [address] [place] [address], [address], [facility] 04/07/2023 14:35:00 Date Recorded Body mass index (BMI) Body weight Provider Name and Address Organization Details Last Updated DateTime 04/07/2023 26.6 kg/m2 63415.66 g Bladimir Claire MD [address] [place] [address],[address] [place] [address], [address] [place] [address] Urology 04/07/2023 14:35:07 Date Recorded Body height Provider Name an d Address Organization Details Last Updated DateTime 10/13/2023 172.72 cm Pauline Sosa [address] [place] [address],[place] [phone] [place] [address] [facility] 10/13/2023 14:38:54 Date Recorded Body mass index (BMI) Body weight Provider Name and Address Organization Details Last Updated DateTime 10/13/2023 26.6 kg/m2 85975.66 g Bladimir Claire MD [address] [place] [address],[address] [address] [place] [address] [facility] 10/13/2023 14:38:59 Date Recorded Body height Provider Name an d Address Organization Details Last Updated DateTime 11/02/2023 172.72 cm Emerita Aguilar [facility] 11/02/2023 14:26:09 Date Recorded Body height Provider Name an d Address Organization Details Last Updated DateTime 12/01/2023 172.72 cm Kirsten Diaz [facility] 12/01/2023 15:18:43 Date Recorded Body mass index (BMI) Body weight Provider Name and Address Organization Details Last Updated DateTime 12/01/2023 26.6 kg/m2 62965.66 g Kirsten Diaz [facility] 12/01/2023 15:18:46 Social History Question Answer Notes LastModified by Organizat ion Details LastModified Time Tobacco Smoking Status Current Every Day Smoker Wanda caceres [facility] 03/27/2022 11:56:46 What Is Your Level Of Alcohol Consumption? Moderate [email or web address] Information not available 03/27/2022 What Is Your Level Of Caffeine Consumption? Moderate [email or web address] Information not available 03/27/2022 What Was The Date Of Your Most Recent Tobacco Screening? 12/01/2023 Information not available 12/01/2023 How Much Tobacco Do You Smoke? 1 PPW [email or web address] Information not available 03/27/2022 Do You Use Any Illicit Or Recreational Drugs? No [email or web address] Information not available 03/27/2022 Do You Or Have You Ever Used Any Other Forms Of Tobacco Or Nicotine? No [email or web address] Information not available 03/27/2022 How Many Days In The Past Year Have You Consumed 5 Or More Drinks? 0 Information no t available 12/01/2023 Sex: Unknown Functional Status None recorded. Mental Status None recorded. Family History Nothing Reported. Medical History Condition Response High Blood Pressure Y Cancer Y High Cholesterol Y Immunizations Vaccine Type Date Status Note Provider Nam e and Address Organization Details Recorded Time IPV 4 completed Bladimir Claire MD [address] [place] [address],[address], [address], [facility] 10/13/2023 14:39:05 Influenza, adjuvanted, trivalent, PF 9 completed Bladimir Claire MD [address] [place] [address],[address], [address], [facility] 10/13/2023 14:39:05 Influenza, recombinant, quadrivalent, PF 0 completed Bladimir Claire MD [address] [place] [address],[address], [address], [facility] 10/13/2023 14:39:05 zoster recombinant 9 completed Bladimir Claire MD [address] [place] [address],[address], [address], [facility] 10/13/2023 14:39:05 zoster recombinant 9 completed Bladimir Claire MD [address] [place] [address],[address], [place], [address], [facility] 10/13/2023 14:39:05 Influenza, high-dose, quadrivalent, PF 1 completed Bladimir Claire MD [address] [place] [address],[address], [address], [facility] 10/13/2023 14:39:05 influenza, unspecified formulation 7 completed Bladimir Claire MD [address] [place] [address],[address], [place], [address], [facility] 10/13/2023 14:39:05 Tdap 5 completed Bladimir Claire MD [address] [place] [address],[address], [place], [address], [facility] 10/13/2023 14:39:06 Novel Czskhsgfd-[id number], all formulations 0 completed Bladimir Claire MD [address] [place] [address],[address], [place], [address], [facility] 10/13/2023 14:39:06 yellow fever live 4 completed Bladimir Claire MD [address] [place] [address],[address], [place], [address], [facility] 10/13/2023 14:39:06 zoster live 3 completed Bladimir Claire MD [address] [place] [address],[address], [place], [address], [facility] 10/13/2023 14:39:06 Influenza, high-dose, trivalent, PF 5 completed Bladimir Claire MD [address] [place] [address],[address], [place], [address], [facility] 10/13/2023 14:39:06 Influenza, high-dose, trivalent, PF 7 completed Bladimir Claire MD [address] [place] [address],[address], [place], [address], [facility] 10/13/2023 14:39:06 Influenza, high-dose, trivalent, PF 5 completed Bladimir Claire MD [address] [place] [address],[address], [place], [address], [facility] 10/13/2023 14:39:06 Influenza, high-dose, trivalent, PF 6 completed Bladimir Claire MD [address] [place] [address],[address], [place], [address], [facility] 10/13/2023 14:39:06 Influenza, split virus, trivalent, preservative 8 completed Bladimir Claire MD [address] [place] [address],[address], [place], [address], [facility] 10/13/2023 14:39:06 Influenza, split virus, trivalent, preservative 3 completed Bladimir Claire MD [address] [place] [address],[address], [place], [address], [facility] 10/13/2023 14:39:06 Influenza, split virus, trivalent, preservative 5 completed Bladimir Claire MD [address] [place] [address],[address], [place], [address], [facility] 10/13/2023 14:39:06 Influenza, split virus, trivalent, preservative 3 completed Bladimir Claire MD [address] [place] [address],[address], [place], [address], [facility] 10/13/2023 14:39:06 Influenza, split virus, trivalent, PF 0 completed Bladimir Claire MD [address] [place] [address],[address], [place], [address], [facility] 10/13/2023 14:39:06 Influenza, split virus, trivalent, PF 8 completed Bladimir Claire MD [address] [place] [address],[address], [place], [address], [facility] 10/13/2023 14:39:06 Influenza, split virus, trivalent, PF 1 completed Bladimir Claire MD [address] [place] [address],[address], [place], [address], [facility] 10/13/2023 14:39:06 Td (adult), 2 Lf tetanus toxoid, preservative free, adsorbed 4 completed Bladimir Claire MD [address] [place] [address],[address], [place], [address], [facility] 10/13/2023 14:39:06 Td (adult), 2 Lf tetanus toxoid, preservative free, adsorbed 0 completed Bladimir Claire MD [address] [place] [address],[address], [place], [address], [facility] 10/13/2023 14:39:06 Hep B, adult 7 completed Bladimir Claire MD [address] [place] [address],[address], [place], [address], [facility] 10/13/2023 14:39:06 Hep B, adult 7 completed Bladimir Claire MD [address] [place] [address],[address], [place], [address], [facility] 10/13/2023 14:39:06 Hep B, adult 6 completed Bladimir Claire MD [address] [place] [address],[address], [place], [address], [facility] 10/13/2023 14:39:06 Hep A, adult 5 completed Bladimir Claire MD [address] [place] [address],[address], [place], [address], [facility] 10/13/2023 14:39:06 Hep A, adult 4 completed Bladimir Claire MD [address] [place] [address],[address], [place], [address], [facility] 10/13/2023 14:39:06 typhoid, oral 7 completed Bladimir Claire MD [address] [place] [address],[address], [place], [address], [facility] 10/13/2023 14:39:06 typhoid, ViCPs 4 completed Bladimir Claire MD [address] [place] [address],[address], [place], [address], [facility] 10/13/2023 14:39:06 Influenza, split virus, quadrivalent, PF 4 completed Bladimir Claire MD [address] [place] [address],[address], [place], [address], [facility] 10/13/2023 14:39:06 COVID-19, mRNA, LNP-S, PF, 30 mcg/0.3 mL dose 1 [facility]/27/[facility]22 11:54:20 COVID-19, mRNA, LNP-S, PF, 30 mcg/0.3 mL dose 1 completed Wanda Lopez morris, [facility] 03/27/2022 11:54:20 COVID-19, mRNA, LNP-S, PF, 30 mcg/0.3 mL dose 2 completed Wanda Lopezmatt caceres, [facility] 03/27/2022 11:54:20 COVID-19, mRNA, LNP-S, PF, 30 mcg/0.3 mL dose 1 [facility] 03/27/2022 11:54:20 pneumococcal polysaccharide PPV23 3 completed Wanda Lopez [facility] 03/27/2022 11:54:20 Pneumococcal conjugate PCV 13 6 completed Wanda Lopez [facility] 03/27/2022 11:54:20 Past Encounters Encounter ID Performer Location Encounter Start Date Encounter Closed Date Diagnosis/Indication Diagnosis SNOMED-CT Code Diagnosis ICD10 Code Diagnosis Note [id number] Boubacar Jang MD [facility] [address] [place] [place] [id number] 03/27/2022 11:43:37 03/30/2022 11:37:19 Increased frequency of urination 213063176 R35.0 H/OUrinary urgency / Frequency- has not responded to oral medication s- other options are Bladder Botox or electrical stimulatio n (Interstim )- reassess after Prostate bx Erectile dysfunction 860 181706 F52.21 H/O Erectile dysfunctio n, unspecifie d erectile dysfunctio n type- continue Trimix (30 mg/2 mg/ 20 mcg) - 0.3-0.4 mL injections prn- CHAS - no effective Prostate s pecific antigen above reference range 369340128 R97.20 1.. Elevated (rising) PSA- Prostate MRI (12/28/18) - 17 gm - no suspicious lesions- high PSA density (0.57)- concerning for prostate cancer- recommend TRUS bx of the prostate (risks include bleeding, infection, and blood in semen) [id number] Vazquez Mcarthur MD [facility] [employer] [facility]. [address] [place] [id number] 04/30/2022 10:59:26 05/04/2022 13:20:11 Prostate specific antigen above reference range 882899522 R97.[address] [facility] pathology results. He was given IM and oral antibiotic s as prophylaxi s against infection. Should he develop a fever or chills, he' ' ll need to call us immedi a tely. [id number] Vazquez Mcarthur MD [facility] [employer] [facility] [address] [place] [id number] 04/30/2022 10:59:26 05/05/2022 03:54:27 [id number] Boubacar Jang MD [facility] [employer] [facility] [address] [place] [id number] 05/20/2022 16:47:41 05/25/2022 10:39:44 Increased frequency of urination 704111494 R35.0 H/O Urinary urgency / Frequency- has not responded to oral medication s- other options are Bladder Botox or electrical stimulatio n (Interstim )- reassess after Prostate cancer tx Erectile dysfunction 860 585278 F52.21 H/O Erectile dysfunctio n, unspecifie d erectile dysfunctio n type- continue Trimix (30 mg/2 mg/ 20 mcg) - 0.3-0.4 mL injections prn- CHAS - no effective Malignant tumor of prostate 226777955 C61 1. Prostate cancer - T1c - Rachel 3+3 = 6 - we reviewed the prostate biopsy results and Manohar table data - treatment options discussed included expectant management , hormonal therapy, cryotherap y, HIFU, radiation (Brachythe rapy and XRT), and surgery (Robot-ass isted laparoscop ic prostatect julia and open Radical retropubic prostatect julia with bilateral pelvic lymph node dissection ). Risks of surgery include bleeding, infection, hernia, rectal injury, urinary incontinen ce, erectile dysfunctio n, and lymphocele formation. - he is considerin g Cryotherap y, RAL prostatect julia, or external beam Radiation- his questions were answered today- I recommende d getting 2nd opinions- he will call and let me know which treatment he would like to pursue [id number] [facility] [address] [place] [address] [address] [place] [id number] 06/24/2022 09:58:15 06/26/2022 12:42:05 Prostate specific antigen above reference range 050794450 R97.20 Malignant tumor of prostate 217964583 C61 [id number] Love Steven _[place] [address] [place] [id number] 08/25/2022 10:53:14 09/01/2022 09:25:06 Postoperative retention of urine 199131932 R33.8 See Procedure Documentat ion for details. Did well: 180 ml IN/180ml OUT. Given Bactrim DS 800mg/160m g x 2 more tabs for prophylaxi sMichael Ibarra, RN/BSN [id number] [facility] [address]. [address] [place] [id number] 09/23/2022 11:56:20 09/30/2022 14:51:34 Postoperative visit 387554349 Z09 Increased frequency of urination 266042866 R35.0 Malignant tumor of prostate 765791457 C61 [id number] [facility] [address]. [place] [id number] 01/05/2023 12:20:36 01/13/2023 10:20:53 Malignant tumor of prostate 139067036 C61 Urethral stricture 05828 002 N35.812 [id number] MD BEATRIZ [facility] [address]. [place] [id number] 04/07/2023 14:31:06 04/12/2023 13:29:32 Malignant tumor of prostate [id number] C61 Urethral stricture 71616 002 N35.812 [id number] [facility] [address] [place] [address] Alejandra. S SUKI GONZALEZ [id number] 10/13/2023 13:53:14 10/15/2023 09:46:44 Malignant tumor of prostate [id number] C61 Erectile dysfunction [id number] F52.21 [id number] Bladimir Claire MD [facility] [address] [place] [phone] 11/02/2023 13:39:10 11/02/2023 14:10:28 Urethral stricture [id number] N35.812 [id number] Juaquin Chaidez MD _[facility] [address] [place] [phone] 12/01/2023 15:06:23 12/02/2023 09:39:17 Malignant tumor of prostate [id number] C61 - S/p cyrotherap y with Dr. Claire- Most recent PSA 1.4 ng/mL Erectile dysfunction [id number] F52.21 - Testostero ne low normal, will trial clomid - We discussed the natural history of erectile dysfunctio n. - Encouraged to follow with his PCP regarding general health maintenanc e as early onset erectile dysfunctio n may herald future cardiovasc ular event. - We discussed various treatment options and their mechanisms of action including: oral PDE-5i, vacuum erection device, intracaver nosal injection therapy, MUSE, and penile prosthesis . The risks and benefits of each course of action were discussed in detail. AUA guidelines suggest that all treatment options should be considered equal and choice of therapy should be individual ized. Utilizing ICI with good results. Urethral stricture 54600 002 N99.111 - Cystoscopy with Dr. Claire reported open stricture Increased frequency of urination [id number] R35.0 - Obtain UroCuff, AUASS - PVR today 45 mL - We discussed the natural history of voiding dysfunctio n including primary bladder outlet obstructio n vs detrusor instabilit y vs combinatio n. We discussed the role of medication s in the management of BPH including alpha blockers, 5-PATTI, and anticholin ergics/bet a agonists including their mechanisms of action. - We discussed various bladder outlet procedures including MISTs (UroLift, Rezum) and traditiona l invasive procedures (Greenligh t PVP, Bipolar TURP). We reviewed risks and benefits of each including anticipate d long-term outcomes. To further evaluate each of these options as a potential treatment option I will set him up for a cystoscopy and TRUS volume only to determine volume and status of medial lobe; as well as a pressure flow study to confirm obstructio n in accordance with AUA guidelines . - Prostate MRI (12/28/18) - 17 gm - no suspicious lesions Health Concerns Section Related Observation LastModified by Organization Detai ls LastModified Time None Recorded Concern Status LastModified by Organization Details LastModified Time None Recorded Advance Directives Directive None Recorded Payers Encounter Date Sequence Insurance Name Policy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
--- NOTE | 2024-09-26 02:30 | CRLHL7_ITS ---
For Patients: As a result of the Century Cures Act, medical imaging exams and procedure reports are released immediately into your electronic medical record. You may view this report before your referring provider. If you have questions, please contact your health care provider. INDICATION: Trauma. TECHNIQUE: CT head without contrast. COMPARISON: CT head 09/25/2024. FINDINGS: CSF spaces: Proportionate prominence of the ventricles and sulci, reflecting mild to moderate generalized cerebral volume loss. Brain parenchyma: Stable elongated hyperdense focus in the left postcentral gyrus measuring 11 mm (series 4, image 29). Prior right frontal craniotomy with underlying right frontal lobe chronic encephalomalacia and gliosis, unchanged. Chronic lacunar infarct left basal ganglia, unchanged. Patchy white matter low attenuation changes, nonspecific but likely reflecting chronic small vessel ischemic disease. No midline shift. Atherosclerotic calcifications of the cavernous carotids and carotid siphons. Skull base and calvarium: Mild mucosal thickening in the ethmoid air cells and maxillary sinuses. Mastoid air cells are clear. The visualized orbits are grossly unremarkable. No skull fractures. IMPRESSION: Stable elongated hyperdense focus in the left postcentral gyrus, which may represent an acute intraparenchymal hematoma. Please note that all CT scans at this facility use dose modulation, iterative reconstruction, and/or weight-based dosing when appropriate to reduce radiation dose to as low as reasonably achievable. Dictated by Jose Epstein MD @ 09/26/2024 2:45:38 AM (Electronically Signed)
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
--- NOTE | 2024-09-26 06:47 | CRLHL7_ITS ---
For Patients: As a result of the Century Cures Act, medical imaging exams and procedure reports are released immediately into your electronic medical record. You may view this report before your referring provider. If you have questions, please contact your health care provider. Indication: Intracranial bleed on CT head Technique: Multiplanar, multisequence MR images of the brain were obtained before and after the administration of intravenous gadolinium. 20 cc Dotarem intravenous contrast Comparison: CT head September 26, 2024, CT head September 25, 2024 and MRI brain January 30, 2020 Findings: On midline sagittal T1 images, there are preserved flow voids and sagittal sinuses. Leukomalacia of the genu of the corpus callosum is again appreciated. Otherwise there is grossly preserved signal and contour. The pituitary gland is unremarkable without evidence of remodeling of the sella turcica. There is no significant cerebellar tonsillar ectopia. On diffusion-weighted sequences, there is minimal punctate restricted diffusion seen within the left parietal lobe corresponding to area of previously seen hemorrhage. No other diffusion restriction is identified. On blood sensitive sequences, there is associated signal dropout within small intraparenchymal hemorrhage within the left parietal lobe. Additional punctate signal dropout is seen within the medial left cerebellum as well as along the right frontal lobe encephalomalacia cavity. There is moderate global cortical atrophy with sulcal widening and ex vacuo dilatation similar to previous exam with focal dilatation of the frontal horn of the right lateral ventricle. There is moderate encephalomalacia of the right frontal lobe as well as the peripheral right temporal lobe. Minimal cytotoxic edema within the left parietal lobe is appreciated. Moderate chronic small vessel disease change and leukoaraiosis is appreciated. Old lacunar changes in the left basal ganglia are seen. There is no evidence of abnormal contrast enhancement. The flow voids at the skull base are unremarkable. The orbits and their contents are within normal limits. There is minimal mucosal thickening seen throughout the paranasal sinuses. The mastoid air cells are clear. Impression: 1. Redemonstration of focal likely hemorrhagic lacunar infarct within the left parietal lobe subcortical white matter without evidence of additional infarcts or subtle acute hemorrhage. No significant contrast enhancement is appreciated to suggest underlying metastatic change. 2. Otherwise stable age-related, chronic small-vessel disease and likely postoperative changes of the brain with stable encephalomalacia of the right frontal lobe and moderate focal gliosis/leukoaraiosis. 3. Otherwise, no new acute intracranial abnormalities are appreciated. Dictated by Jesse Espinosa MD @ 09/26/2024 1:12:18 PM (Electronically Signed)
--- NOTE | 2024-09-26 07:59 | PC.NURSE ---
End of shift: Pt arrived to unit @ 0355. Pt AxOx4, pleasant, cooperative. Accompanied by . VSS with a temp of 100.3. Expiratory Rhonchi heard on auscultation. Pt denies reported pain to the R shoulder and back. Deburr Operator utilized position change. Awaiting orders from MD. Pt reported headache, MD made aware. Neuros to be done q4h, CMS intact per rfp writer. Pt reports feeling chronically ?unsteady.? No wounds were found on the body. TELE showed NSR. IV SL. Regular diet. Continent of the bladder. Pt appears resting in bed with call light in reach. ?
[2024-09-26] MEDS: AMLODIPINE 5 MG TABLET 7.5 MG PO (08:35)
[2024-09-26] MEDS: lisinopriL 5 MG TABLET PO (08:36)
[2024-09-26] MEDS: lamoTRIgine 100 MG TABLET PO (08:36)
[2024-09-26] MEDS: OSELTAMIVIR PHOSPHATE 75 MG CAPSULE PO ×2 (08:36→20:36)
[2024-09-26] MEDS: SODIUM CHLORIDE 0.9 % (FLUSH) 10 ML SYRINGE 5 ML IVF ×2 (08:36→20:33)
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
--- NOTE | 2024-09-26 09:19 | CRLHL7_ITS ---
For Patients: As a result of the Cures Act, medical imaging exams and procedure reports are released immediately into your electronic medical record. You may view this report before your referring provider. If you have questions, please contact your health care provider. INDICATION: Fall, pain COMPARISON: None. TECHNIQUE: Three views right shoulder FINDINGS: No acute or healing fracture. There are old right rib fracture deformities posteriorly of the 4th 5th and 6th ribs. Normal alignment. Mild osteoarthritis of the acromioclavicular and glenohumeral joints. No focal bone lesions. Small calcific tendonitis of the supraspinatus tendon. No foreign body. IMPRESSION: No acute traumatic findings of the right shoulder. Dictated by Naila Lewis MD @ 09/26/2024 9:58:40 AM (Electronically Signed)
[2024-09-26] MEDS: ACETAMINOPHEN 325 MG TABLET 650 MG PO (09:29)
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
--- NOTE | 2024-09-26 15:20 | PC.NURSE ---
ASSUMED CARE THIS AM. TELE SHOWING NSR. PATIENT HAD FEVER THIS AM AND RESOLVED WITH TYLENOL. PATIENT UP WITH A1, WALKER AND GAIT BELT TO BATHROOM AND IN ROOM. BED ALARM ON PATIENT IS IMPULSIVE AND UNSTEADY WITHOUT ASSIST. PLEASANT AND COOPERATIVE. INTERMITTENT UNPRODUCTIVE COUGH. PATIENT USING INCENTIVE SPIROMETER AND AEROBIKA. REPORTS NO APPETITE BUT WAS ABLE TOLERATE PREMIER PROTEIN DRINK WITH NO C/O N/V. REPORTS HEADACHE THAT WAS IMPROVED WITH TYLENOL. C/O RIGHT SHOULDER PAIN WITH MOVEMENT BUT XRAY NEGATIVE FOR FRACTURE.
--- NOTE | 2024-09-26 18:35 | PC.NURSE ---
(Shift 15-19) Pt alert to self but Pt is impulsive and does not use call light appropriately. Pt had no complaints of pain. VS WNL. Pt napped during shift. Pt is up with SBA with 4WW and gait belt. Pt up to chair x 1 during shift.?
[2024-09-26] MEDS: ACETAMINOPHEN 325 MG TABLET 975 MG PO (19:48)
[2024-09-26] MEDS: ATORVASTATIN 10 MG TABLET 20 MG PO (20:31)
[2024-09-26] MEDS: lamoTRIgine 100 MG TABLET 200 MG PO (20:32)
[2024-09-27 02:46] VITALS: BP 106/65; PULSE 86; RESP 18; TEMP 37.6; O2SAT 92
[2024-09-27 04:26] VITALS: TEMP 37.1
--- NOTE | 2024-09-27 06:23 | PC.NURSE ---
End of shift note [id number]: Pt noted to be alert & oriented to person, place and time upon assessment though does have intermittent forgetfulness/impulsivity noted. Pt believed his fall prior to coming to hospital was 09/24/24 when discussed with nurse. He is refusing to wear gripper socks this morning despite encouragement and education from this RN of importance of wearing these. Seizure pads in place d/t hx of seizures. IV to R hand patent and SL after new IV site had to be started due to pt pulling previous IV to R AC out independently with catheter tip intact. Pt thought IV was just a gauze dressing in place and needed reminding that this had been in fact an IV in place. Pt has been denying pain when asked throughout the shift. Pt transferring/ambulating with SBA, gait belt and 4WW and is noted to have gait instability which is not a new finding. Tele in place with NSR. Pt noted to have fever as high as 101.2 at HS and was given PRN Tylenol which was effective upon followup. SCDs on at start of shift though removed per RN discretion as these are a trip hazard and pt is high fall risk with impulsive behaviors. Day RN reported that pt was not using call light when needing to get up to use bathroom. Pt has been mostly continent of bladder throughout the shift. Bed alarm on, fall light on, bed brakes locked, bed in lowest position and call light within reach. ?
[2024-09-27 06:41] LABS: Hematocrit 43.1 % (37.0-53.0); Hemoglobin* 14.4 gm/dL (13.5-17.5); Mean Corpuscular HGB Conc 33 gm/dL (32-36); Mean Corpuscular Hemoglobin 32 pg (26-34); Mean Corpuscular Volume 96 fL (80-100); Platelet Count* 254 K/uL (140-440); White Blood Count* 9.73 K/uL (4.50-11.00)
[2024-09-27 06:49] LABS: Slide Review Reflex No
[2024-09-27 07:00] VITALS: BP 112/78; PULSE 81; PULSE 83; RESP 18; TEMP 37.1; O2SAT 95
[2024-09-27 07:08] LABS: Chloride* 104 mmol/L (96-114); Potassium* 4.1 mmol/L (3.6-5.1); Sodium* 138 mmol/L (135-149)
[2024-09-27 07:11] LABS: Anion Gap 8 mEq/L (7-15); Blood Urea Nitrogen* 22 mg/dL (7-30); Carbon Dioxide* 26 mmol/L (20-32); Est. Creatinine Clearance* 59.85; Estimated Glomerular Filt Rate 78 ml/min; Glucose* 95 mg/dL (60-115)
[2024-09-27] MEDS: OSELTAMIVIR PHOSPHATE 75 MG CAPSULE PO (08:22)
[2024-09-27] MEDS: lisinopriL 5 MG TABLET PO (08:22)
[2024-09-27] MEDS: AMLODIPINE 5 MG TABLET 7.5 MG PO (08:23)
[2024-09-27] MEDS: SERTRALINE 50 MG TABLET 25 MG PO (08:23)
[2024-09-27] MEDS: lamoTRIgine 100 MG TABLET PO (08:24)
[2024-09-27] MEDS: SODIUM CHLORIDE 0.9 % (FLUSH) 10 ML SYRINGE 5 ML IVF (08:24)
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
--- NOTE | 2024-09-27 16:08 | PC.NURSE ---
PATIENT UP WITH A1, WALKER AND GAIT BELT. IMPULSIVE AT TIMES AND NOT USING CALL LIGHT FOR ASSISTANCE. SALINE LOCK DC'D. REVIEWED DC INSTRUCTIONS WITH PATIENT AND HIS . PATIENT AND REQUESTING TO SET UP OUTPATIENT PT/OT WITH [facility]. ORDER OBTAINED AND SIGNED BY PHYSICIAN AND FAXED TO REHAB. PATIENT DC'D HOME VIA .
== END 2024-09-27 11:30 | disposition home or self-care (01) | DRG 86 ==
LOC: ED 23:45 → MEDSURG 09-26 03:49
PROVIDERS: Physician Assistant; Admitting Provider Internal Medicine; Emergency Provider Student in an Organized Health Care Education/Training Program; PCP Family Medicine; Visit Provider Internal Medicine
DX: S06.300A Unspecified focal traumatic brain injury without loss of consciousness, initial encounter (principal); S22.42XA Multiple fractures of ribs, left side, initial encounter for closed fracture; J10.1 Influenza due to other identified influenza virus with other respiratory manifestations; W10.8XXA Fall (on) (from) other stairs and steps, initial encounter; Y92.213 High school as the place of occurrence of the external cause; Z91.81 History of falling; F09 Unspecified mental disorder due to known physiological condition; G40.909 Epilepsy, unspecified, not intractable, without status epilepticus; F32.A Depression, unspecified; I10 Essential (primary) hypertension; R26.81 Unsteadiness on feet; F03.90 Unspecified dementia, unspecified severity, without behavioral disturbance, psychotic disturbance, mood disturbance, and anxiety; F17.210 Nicotine dependence, cigarettes, uncomplicated; M25.511 Pain in right shoulder; R26.89 Other abnormalities of gait and mobility; R93.2 Abnormal findings on diagnostic imaging of liver and biliary tract; N50.89 Other specified disorders of the male genital organs; E78.5 Hyperlipidemia, unspecified; Z98.890 Other specified postprocedural states; Z86.79 Personal history of other diseases of the circulatory system; Z85.51 Personal history of malignant neoplasm of bladder; Z87.820 Personal history of traumatic brain injury; Z87.81 Personal history of (healed) traumatic fracture
CPT/HCPCS: 36415; 70450; 70553; 71260; 72125; 73030; 74177; 80048; 84443; 84484; 85025; 85027; 85610; 87631; 93005; 94761; 97116; 97162; 97165; 97530; 97535; 99285; A9270; A9575; G0378; Q9967

== ENCOUNTER 2024-10-26 14:15 | Outpatient (RCR) | payer MEDICARE, BC, SELFPAY ==
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
== END 2024-12-19 14:56 | disposition home or self-care (01) ==
PROVIDERS: PCP Family Medicine; Visit Provider Internal Medicine
DX: S06.5X0A Traumatic subdural hemorrhage without loss of consciousness, initial encounter (principal); R41.840 Attention and concentration deficit; Z51.89 Encounter for other specified aftercare
CPT/HCPCS: 97110; 97161; 97166; 97535